=== PATIENT | female | born 1955 | race Caucasian/White ===

== ENCOUNTER 2020-08-17 21:21 | Inpatient (IN) | payer OTHER ==
[~2020-08-17] VITALS: Ht 160 cm; Wt 93.5 kg
[2020-08-17] MEDS ORDERED: SODIUM CHLORIDE FLUSH 10ML SYR IVF ONE (22:00)
--- NOTE | 2020-08-17 22:13 | NUR ---
INDWELLING GARRETT INSERTED WITH STERILE PROCEDURE. CLOUDY, BLOOD TINGED URINE DRAINING. PT STATES HER BLADDER FEELS SO MUCH BETTER. URINE COLLECTED AND TAKEN TO LAB.
[2020-08-17 22:21] LABS: MICROSCOPIC INDICATED
--- NOTE | 2020-08-17 22:30 | NUR ---
PIV PLACED, LABS DRAWN AND COLLECTED BY PERMASTONE INSTALLER. PT CONNECTED TO ALL MONITORING. CALL LIGHT IN REACH. SPOUSE AT BEDSIDE.
--- NOTE | 2020-08-17 22:36 | NUR ---
PT C/O INCREASED WORK OF BREATHING WHILE AMBULATING X1 MONTH. LLE SWELLING X1 MONTH. Addendum: 08/17/20 at 2241 by [email or web address] PT OXYGEN LEVEL 87% RA, EVEN AFTER REPOSITIONING. PT PLACED ON OXYGEN 2L VIA NC. ERMD NOTIFIED.
[2020-08-17 22:37] LABS: BASOPHILS % (AUTO) 1 % (0-1); EOSINOPHILS % (AUTO) 2 % (1-7); LYMPHOCYTES % (AUTO) 12 % (22-44); MEAN CORPUSCULAR HEMOGLOBIN 17.9 pg (27.0-34.8); MEAN PLATELET VOLUME 6.5 fL (7.4-10.4); MONOCYTES % (AUTO) 8 % (2-9); NEUTROPHILS % (AUTO) 78 % (42-75); PLATELET COUNT 458 x10^3/uL (130-400); RED BLOOD COUNT 4.01 x10^6/uL (3.82-5.3)
[2020-08-17 22:49] LABS: ALANINE AMINOTRANSFERASE 15 U/L (12-78); ALBUMIN 2.9 g/dL (3.4-5.0); ANION GAP 5 mmol/L (5-15); CALCIUM 8.5 mg/dL (8.5-10.1); CHLORIDE 106 mmol/L (98-107); CREATININE 1.46 mg/dL (0.55-1.02)
[2020-08-17 22:53] LABS: ALKALINE PHOSPHATASE 100 U/L (45-117); BILIRUBIN,TOTAL 0.2 mg/dL (0.2-1.0)
[2020-08-17 22:57] LABS: TROPONIN I 0.197 ng/mL (0.000-0.045)
[2020-08-17] MEDS ORDERED: NITROGLYCERIN OINT 2%, 1GM TP ONE ×2 (23:00→23:11)
[2020-08-17] MEDS ORDERED: FUROSEMIDE 40 MG/4 ML IVPush ONE (23:00)
[2020-08-17] MEDS ORDERED: CEFTRIAXONE 1,000 MG in DEXTROSE 5% 50 ML IVPB ONE (23:00)
[2020-08-17] MEDS ORDERED: ASPIRIN 81 MG TABLET CHEW PO ONE (23:00)
--- NOTE | 2020-08-17 23:06 | NUR ---
REPORT FROM LANDRY HERRON MD AT BEDSIDE
[2020-08-17] MEDS ORDERED: FUROSEMIDE 40 MG/4 ML ONE (23:10)
[2020-08-17] MEDS ORDERED: ASPIRIN 81 MG TABLET CHEW ONE (23:11)
--- NOTE | 2020-08-17 23:25 | NUR ---
PT MEDICATED. VSS. MED REC COMPLETE. CALL LIGHT IN REACH
[2020-08-17] MEDS ORDERED: HYDROcodone/APAP 5/325 TABLET PO ONE (23:30)
[2020-08-17] MEDS ORDERED: HYDROcodone/APAP 5/325 TABLET ONE (23:34)
[2020-08-18] VITALS (7 sets, daily range): BP systolic 158–195; BP diastolic 62–101
[2020-08-18] MEDS ORDERED: BISACODYL 10 MG SUPP PR PRN (00:30)
[2020-08-18] MEDS ORDERED: POLYETHYLENE GLYCOL 17 GM PACKET PO PRN (00:30)
[2020-08-18] MEDS ORDERED: ONDANSETRON ODT 4 MG PO PRN (00:30)
[2020-08-18] MEDS: FERROUS SULFATE 325 MG TABLET PO SCH ×2 (01:13→08:08)
[2020-08-18 04:44] LABS: BASOPHILS % (AUTO) 0 % (0-1); EOSINOPHILS % (AUTO) 2 % (1-7); LYMPHOCYTES % (AUTO) 15 % (22-44); MEAN CORPUSCULAR HEMOGLOBIN 18.2 pg (27.0-34.8); MEAN CORPUSCULAR HGB CONC 30.7 g/dL (32.4-35.8); MEAN PLATELET VOLUME 6.4 fL (7.4-10.4); MONOCYTES % (AUTO) 9 % (2-9); NEUTROPHILS % (AUTO) 74 % (42-75); PLATELET COUNT 475 x10^3/uL (130-400); RED BLOOD COUNT 3.98 x10^6/uL (3.82-5.3); RED CELL DISTRIBUTION WIDTH 18.6 % (9.6-15.2)
[2020-08-18 04:55] LABS: ANION GAP 6 mmol/L (5-15); CALCIUM 8.8 mg/dL (8.5-10.1); CHLORIDE 105 mmol/L (98-107)
[2020-08-18 05:01] LABS: CREATININE 1.31 mg/dL (0.55-1.02); TROPONIN I 0.192 ng/mL (0.000-0.045)
[2020-08-18] MEDS: SODIUM CHLORIDE FLUSH 10ML SYR IVF SCH ×2 (08:08→22:12)
[2020-08-18] MEDS: FUROSEMIDE 40 MG/4 ML IV SCH ×2 (08:08→17:33)
[2020-08-18] MEDS: SENNA/DOCUSATE TABLET PO SCH (08:09)
[2020-08-18] MEDS ORDERED: IRON SUCROSE COMPLEX 100MG/5ML IV SCH (09:00)
[2020-08-18] MEDS: IRON SUCROSE COMPLEX 100MG/5ML IV SCH (09:51)
[2020-08-18] MEDS: ACETAMINOPHEN 325 MG TABLET PO PRN ×2 (09:51→22:12)
[2020-08-18 10:38] LABS: TROPONIN I 0.165 ng/mL (0.000-0.045)
[2020-08-18] MEDS ORDERED: ENALAPRILAT 1.25 MG/ML, 2ML IV ONE (22:00)
[2020-08-18] MEDS: CEFTRIAXONE 1,000 MG in DEXTROSE 5% 50 ML IVPB SCH (23:07)
[2020-08-19 01:18] VITALS: BP 173/92
[2020-08-19] MEDS: ENALAPRILAT 1.25 MG/ML, 2ML IVPush PRN (01:49)
[2020-08-19] MEDS ORDERED: HYDROcodone/APAP 5/325 TABLET PO ONE (02:30)
[2020-08-19 06:01] LABS: BASOPHILS % (AUTO) 0 % (0-1); EOSINOPHILS % (AUTO) 0 % (1-7); LYMPHOCYTES % (AUTO) 6 % (22-44); MEAN CORPUSCULAR HEMOGLOBIN 17.7 pg (27.0-34.8); MEAN PLATELET VOLUME 6.9 fL (7.4-10.4); MONOCYTES % (AUTO) 6 % (2-9); NEUTROPHILS % (AUTO) 87 % (42-75); PLATELET COUNT 525 x10^3/uL (130-400); RED BLOOD COUNT 4.39 x10^6/uL (3.82-5.3); RED CELL DISTRIBUTION WIDTH 18.9 % (9.6-15.2)
[2020-08-19 06:04] LABS: CHLORIDE 102 mmol/L (98-107)
[2020-08-19 06:14] LABS: ANION GAP 9 mmol/L (5-15); CALCIUM 9.1 mg/dL (8.5-10.1); CREATININE 1.45 mg/dL (0.55-1.02); TROPONIN I 0.154 ng/mL (0.000-0.045)
[2020-08-19 06:16] LABS: MEAN CORPUSCULAR HGB CONC 29.5 g/dL (32.4-35.8)
[2020-08-19 06:30] VITALS: BP 148/83
[2020-08-19] MEDS: IRON SUCROSE COMPLEX 100MG/5ML IV SCH (08:53)
[2020-08-19] MEDS: SODIUM CHLORIDE FLUSH 10ML SYR IVF SCH ×2 (08:54→20:35)
[2020-08-19] MEDS: FUROSEMIDE 40 MG/4 ML IV SCH (08:54)
[2020-08-19] MEDS: SENNA/DOCUSATE TABLET PO SCH (08:54)
[2020-08-19] MEDS ORDERED: HYDROcodone/APAP 5/325 TABLET ONE (09:13)
[2020-08-19] MEDS: HYDROcodone/APAP 5/325 TABLET PO PRN ×3 (09:16→17:29)
[2020-08-19 12:28] VITALS: BP 157/84
[2020-08-19] MEDS: SODIUM CHLORIDE 0.9% 1,000 ML IV SCH (17:29)
[2020-08-19 20:40] VITALS: BP 142/78
[2020-08-19] MEDS: CEFTRIAXONE 1,000 MG in DEXTROSE 5% 50 ML IVPB SCH (23:10)
[2020-08-20 00:51] VITALS: BP 168/81
[2020-08-20] MEDS: SODIUM CHLORIDE 0.9% 1,000 ML IV SCH (03:56)
[2020-08-20 05:38] LABS: BASOPHILS % (AUTO) 0 % (0-1); EOSINOPHILS % (AUTO) 0 % (1-7); LYMPHOCYTES % (AUTO) 11 % (22-44); MEAN CORPUSCULAR HEMOGLOBIN 17.9 pg (27.0-34.8); MEAN CORPUSCULAR HGB CONC 30.2 g/dL (32.4-35.8); MEAN PLATELET VOLUME 8.4 fL (7.4-10.4); MONOCYTES % (AUTO) 10 % (2-9); NEUTROPHILS % (AUTO) 78 % (42-75); PLATELET COUNT 445 x10^3/uL (130-400); RED BLOOD COUNT 4.19 x10^6/uL (3.82-5.3); RED CELL DISTRIBUTION WIDTH 19.1 % (9.6-15.2)
[2020-08-20 05:50] LABS: ANION GAP 5 mmol/L (5-15); CALCIUM 9.6 mg/dL (8.5-10.1); CHLORIDE 102 mmol/L (98-107)
[2020-08-20 05:54] LABS: TROPONIN I 0.088 ng/mL (0.000-0.045)
[2020-08-20 06:07] LABS: ANISOCYTOSIS 2+; MICROCYTOSIS 2+
[2020-08-20 06:08] LABS: POLYCHROMASIA 1+
[2020-08-20 06:09] LABS: <PLATELET ESTIMATE> INCREASED; <PLT MORPHOLOGY> NORMAL PLT MORPH; HYPOCHROMIA 2+; OVALOCYTES 1+
[2020-08-20 07:32] VITALS: BP 149/76
[2020-08-20] MEDS: ACETAMINOPHEN 325 MG TABLET PO PRN (07:37)
[2020-08-20] MEDS: SODIUM CHLORIDE FLUSH 10ML SYR IVF SCH ×2 (10:01→20:19)
[2020-08-20] MEDS ORDERED: OMNIPAQUE 350 MG/ML, 100ML BOTTLE ONE (10:06)
[2020-08-20] MEDS: SENNA/DOCUSATE TABLET PO SCH (12:00)
[2020-08-20] MEDS: IRON SUCROSE COMPLEX 100MG/5ML IV SCH (12:13)
[2020-08-20] MEDS ORDERED: CHLORHEXIDINE 15 ML UDC ONE (12:26)
[2020-08-20] MEDS ORDERED: CHLORHEXIDINE 15 ML UDC PO ONE (12:30)
[2020-08-20] MEDS ORDERED: HYDROmorphone 1 MG/ML, 1ML INJ IVPush PRN (13:00)
[2020-08-20] MEDS ORDERED: PROMETHAZINE 25 MG/ML, 1ML IVPush PRN (13:00)
[2020-08-20] MEDS ORDERED: MEPERIDINE/PF 25MG/0.5ML IVPush PRN (13:00)
[2020-08-20] MEDS ORDERED: HYDROcodone/APAP 7.5-325MG/15ML UDC PO PRN (13:00)
[2020-08-20] MEDS ORDERED: FENTANYL PF 100 MCG/2ML IV PRN (13:00)
[2020-08-20] MEDS ORDERED: ONDANSETRON 2MG/ML, 2ML IVPush PRN (13:00)
[2020-08-20] MEDS ORDERED: OXYcodone 5 MG/5 ML ORAL.SOL UDC PO PRN (13:00)
[2020-08-20] MEDS ORDERED: MIDAZOLAM 1 MG/ML, 2ML ONE (13:03)
[2020-08-20] MEDS ORDERED: FENTANYL PF 100 MCG/2ML ONE (13:04)
[2020-08-20] MEDS ORDERED: OMNIPAQUE 350 MG/ML, 50 ML BOTTLE ONE (13:24)
[2020-08-20 13:29] LABS: OCCULT BLOOD NEGATIVE (NEGATIVE)
[2020-08-20] MEDS ORDERED: DEXAMETHASONE 4 MG/ML, 1ML ONE (14:12)
[2020-08-20] MEDS ORDERED: CEFAZOLIN 1,000 MG ONE (14:12)
[2020-08-20] MEDS ORDERED: GLYCOPYRROLATE 0.2MG/1ML, 5ML ONE (14:12)
[2020-08-20] MEDS ORDERED: ONDANSETRON 2MG/ML, 2ML ONE (14:12)
[2020-08-20] MEDS ORDERED: SUCCINYLCHOLINE 20 MG/ML, 10ML ONE (14:12)
[2020-08-20] MEDS ORDERED: PROPOFOL 10 MG/ML, 20ML ONE (14:12)
[2020-08-20] MEDS ORDERED: NEOSTIGMINE 1 MG/ML, 10ML ONE (14:12)
[2020-08-20] MEDS ORDERED: ROCURONIUM 10MG/ML,5ML ONE (14:12)
[2020-08-20] MEDS ORDERED: LABETALOL 5MG/ML, 20ML ONE (15:18)
[2020-08-20] MEDS ORDERED: LABETALOL 5MG/ML, 20ML IV PRN (15:30)
[2020-08-20] MEDS ORDERED: hydrALAzine 20 MG/ML, 1ML IV PRN (15:30)
[2020-08-20 15:55] VITALS: BP 153/81
[2020-08-20 18:51] LABS: INTERNATIONAL NORMALIZED RATIO 1.07 (0.93-1.1); PROTHROMBIN TIME 11.4 Seconds (9.6-11.5)
[2020-08-20] MEDS ORDERED: OMNIPAQUE 350 MG/ML, 75ML BOTTLE ONE (19:33)
[2020-08-20 20:13] VITALS: BP 130/70
[2020-08-20] MEDS: CEFTRIAXONE 1,000 MG in DEXTROSE 5% 50 ML IVPB SCH (23:13)
[2020-08-21 01:18] VITALS: BP 150/75
[2020-08-21 04:52] LABS: BASOPHILS % (AUTO) 1 % (0-1); EOSINOPHILS % (AUTO) 0 % (1-7); LYMPHOCYTES % (AUTO) 6 % (22-44); MEAN CORPUSCULAR HEMOGLOBIN 17.8 pg (27.0-34.8); MEAN PLATELET VOLUME 6.7 fL (7.4-10.4); MONOCYTES % (AUTO) 5 % (2-9); NEUTROPHILS % (AUTO) 88 % (42-75); PLATELET COUNT 453 x10^3/uL (130-400); RED BLOOD COUNT 4.02 x10^6/uL (3.82-5.3); RED CELL DISTRIBUTION WIDTH 18.9 % (9.6-15.2)
[2020-08-21 04:56] LABS: MEAN CORPUSCULAR HGB CONC 29.4 g/dL (32.4-35.8)
[2020-08-21 05:07] LABS: CHLORIDE 102 mmol/L (98-107)
[2020-08-21 05:15] LABS: ANION GAP 4 mmol/L (5-15); CALCIUM 9.3 mg/dL (8.5-10.1); CREATININE 1.45 mg/dL (0.55-1.02)
[2020-08-21 05:58] LABS: INTERNATIONAL NORMALIZED RATIO 1.02 (0.93-1.1); PROTHROMBIN TIME 10.9 Seconds (9.6-11.5)
[2020-08-21 07:15] VITALS: BP 147/77
[2020-08-21] MEDS: SENNA/DOCUSATE TABLET PO SCH (09:58)
[2020-08-21] MEDS: IRON SUCROSE COMPLEX 100MG/5ML IV SCH (09:58)
[2020-08-21] MEDS: FERROUS SULFATE 325 MG TABLET PO SCH ×3 (09:58→17:14)
[2020-08-21] MEDS: SODIUM CHLORIDE FLUSH 10ML SYR IVF SCH ×2 (09:59→20:18)
[2020-08-21] MEDS ORDERED: LIDOCAINE-MPF 1%, 5ML ONE (10:18)
[2020-08-21] MEDS ORDERED: MIDAZOLAM 1 MG/ML, 5ML ONE (10:22)
[2020-08-21] MEDS ORDERED: FENTANYL PF 100 MCG/2ML ONE (10:22)
[2020-08-21] MEDS ORDERED: FLUMAZENIL 0.1 MG/1 ML, 5ML ONE (10:22)
[2020-08-21] MEDS ORDERED: NALOXONE 1 MG/ML, 2ML ONE (10:22)
[2020-08-21 13:48] VITALS: BP 155/82
[2020-08-21] MEDS ORDERED: GADOTERATE 10 MMOL/20ML SYR ONE (15:40)
[2020-08-21] MEDS: HYDROcodone/APAP 5/325 TABLET PO PRN (19:34)
[2020-08-21 20:21] VITALS: BP 146/70
[2020-08-21] MEDS: CEFTRIAXONE 1,000 MG in DEXTROSE 5% 50 ML IVPB SCH (23:12)
[2020-08-22 01:59] VITALS: BP 170/90
[2020-08-22] MEDS: ACETAMINOPHEN 325 MG TABLET PO PRN (02:24)
[2020-08-22] MEDS: ENALAPRILAT 1.25 MG/ML, 2ML IVPush PRN ×2 (02:24→16:29)
[2020-08-22 05:29] LABS: BASOPHILS % (AUTO) 1 % (0-1); EOSINOPHILS % (AUTO) 0 % (1-7); LYMPHOCYTES % (AUTO) 8 % (22-44); MEAN CORPUSCULAR HEMOGLOBIN 18.6 pg (27.0-34.8); MEAN CORPUSCULAR HGB CONC 30.2 g/dL (32.4-35.8); MEAN PLATELET VOLUME 6.9 fL (7.4-10.4); MONOCYTES % (AUTO) 9 % (2-9); NEUTROPHILS % (AUTO) 82 % (42-75); PLATELET COUNT 477 x10^3/uL (130-400); RED CELL DISTRIBUTION WIDTH 18.8 % (9.6-15.2)
[2020-08-22 05:40] LABS: CALCIUM 9.3 mg/dL (8.5-10.1); CHLORIDE 102 mmol/L (98-107)
[2020-08-22 05:46] LABS: ALANINE AMINOTRANSFERASE 12 U/L (12-78); ALBUMIN 2.5 g/dL (3.4-5.0); ALKALINE PHOSPHATASE 76 U/L (45-117); ANION GAP 5 mmol/L (5-15); BILIRUBIN,TOTAL 0.2 mg/dL (0.2-1.0); CREATININE 1.39 mg/dL (0.55-1.02); TOTAL PROTEIN 6.4 g/dL (6.4-8.2)
[2020-08-22 07:05] VITALS: BP 162/88
[2020-08-22] MEDS: SENNA/DOCUSATE TABLET PO SCH (08:40)
[2020-08-22] MEDS: IRON SUCROSE COMPLEX 100MG/5ML IV SCH (08:40)
[2020-08-22] MEDS: FERROUS SULFATE 325 MG TABLET PO SCH ×3 (08:40→16:29)
[2020-08-22] MEDS: SODIUM CHLORIDE FLUSH 10ML SYR IVF SCH ×2 (08:41→21:02)
[2020-08-22] MEDS ORDERED: ENALAPRILAT 1.25 MG/ML, 1ML ONE ×2 (10:18→10:19)
[2020-08-22 10:31] LABS: OCCULT BLOOD NEGATIVE (NEGATIVE)
[2020-08-22] MEDS ORDERED: HEPARIN 25,000 UNITS/250ML PMX 250 ML IV PRN (13:00)
[2020-08-22] MEDS ORDERED: HEPARIN 5,000 UNITS/ML, 1ML IV ONE (13:00)
[2020-08-22] MEDS: HYDROcodone/APAP 5/325 TABLET PO PRN ×2 (13:06→17:35)
[2020-08-22 13:08] VITALS: BP 173/90
[2020-08-22 16:20] VITALS: BP 183/93
[2020-08-22 17:36] VITALS: BP 163/77
[2020-08-22 19:49] VITALS: BP 166/80
[2020-08-22] MEDS: HEPARIN 5,000 UNITS/ML, 1ML IV PRN (21:02)
[2020-08-23 00:35] VITALS: BP 165/79
[2020-08-23] MEDS ORDERED: ENALAPRILAT 1.25 MG/ML, 1ML ONE ×2 (00:41→09:33)
[2020-08-23] MEDS: HYDROcodone/APAP 5/325 TABLET PO PRN ×3 (00:44→19:12)
[2020-08-23] MEDS: ENALAPRILAT 1.25 MG/ML, 2ML IVPush PRN ×2 (00:47→09:36)
[2020-08-23 00:54] LABS: OCCULT BLOOD NEGATIVE (NEGATIVE)
[2020-08-23 05:27] LABS: ANION GAP 2 mmol/L (5-15); BASOPHILS % (AUTO) 1 % (0-1); CALCIUM 8.9 mg/dL (8.5-10.1); CHLORIDE 104 mmol/L (98-107); CREATININE 1.17 mg/dL (0.55-1.02); EOSINOPHILS % (AUTO) 1 % (1-7); LYMPHOCYTES % (AUTO) 13 % (22-44); MEAN CORPUSCULAR HEMOGLOBIN 18.8 pg (27.0-34.8); MEAN PLATELET VOLUME 6.7 fL (7.4-10.4); MONOCYTES % (AUTO) 10 % (2-9); NEUTROPHILS % (AUTO) 76 % (42-75); PLATELET COUNT 443 x10^3/uL (130-400); RED BLOOD COUNT 3.99 x10^6/uL (3.82-5.3); RED CELL DISTRIBUTION WIDTH 19.4 % (9.6-15.2)
[2020-08-23 05:32] LABS: MEAN CORPUSCULAR HGB CONC 29.9 g/dL (32.4-35.8)
[2020-08-23] MEDS: HEPARIN 5,000 UNITS/ML, 1ML IV PRN (06:26)
[2020-08-23 06:59] VITALS: BP 163/77
[2020-08-23] MEDS: IRON SUCROSE COMPLEX 100MG/5ML IV SCH (09:37)
[2020-08-23] MEDS: SODIUM CHLORIDE FLUSH 10ML SYR IVF SCH ×2 (09:38→21:38)
[2020-08-23] MEDS: SENNA/DOCUSATE TABLET PO SCH (09:38)
[2020-08-23] MEDS: FERROUS SULFATE 325 MG TABLET PO SCH ×3 (09:38→17:30)
[2020-08-23] MEDS: APIXABAN 5 MG TABLET PO SCH ×2 (10:58→21:38)
[2020-08-23 12:41] VITALS: BP 155/72
[2020-08-23 19:04] VITALS: BP 123/64
[2020-08-24 01:15] VITALS: BP 145/84
[2020-08-24] MEDS: HYDROcodone/APAP 5/325 TABLET PO PRN ×2 (01:22→16:55)
[2020-08-24 05:15] LABS: BASOPHILS % (AUTO) 1 % (0-1); EOSINOPHILS % (AUTO) 2 % (1-7); LYMPHOCYTES % (AUTO) 12 % (22-44); MEAN CORPUSCULAR HEMOGLOBIN 19.3 pg (27.0-34.8); MEAN CORPUSCULAR HGB CONC 30.5 g/dL (32.4-35.8); MEAN PLATELET VOLUME 6.8 fL (7.4-10.4); MONOCYTES % (AUTO) 9 % (2-9); NEUTROPHILS % (AUTO) 77 % (42-75); PLATELET COUNT 441 x10^3/uL (130-400); RED BLOOD COUNT 3.93 x10^6/uL (3.82-5.3); RED CELL DISTRIBUTION WIDTH 19.2 % (9.6-15.2)
[2020-08-24 05:18] LABS: ANION GAP 2 mmol/L (5-15); CALCIUM 9.3 mg/dL (8.5-10.1); CHLORIDE 106 mmol/L (98-107)
[2020-08-24 05:19] LABS: CREATININE 1.13 mg/dL (0.55-1.02)
[2020-08-24 06:27] VITALS: BP 152/84
[2020-08-24] MEDS: SENNA/DOCUSATE TABLET PO SCH (08:02)
[2020-08-24] MEDS: APIXABAN 5 MG TABLET PO SCH ×2 (08:02→20:58)
[2020-08-24] MEDS: FERROUS SULFATE 325 MG TABLET PO SCH ×3 (08:02→16:55)
[2020-08-24] MEDS: IRON SUCROSE COMPLEX 100MG/5ML IV SCH (08:02)
[2020-08-24] MEDS: SODIUM CHLORIDE FLUSH 10ML SYR IVF SCH ×2 (09:00→20:59)
[2020-08-24] MEDS: ACETAMINOPHEN 325 MG TABLET PO PRN (10:01)
[2020-08-24 13:12] VITALS: BP 159/70
[2020-08-24] MEDS ORDERED: APIX5TAB PO (14:51)
[2020-08-24] MEDS ORDERED: HYDR-2214 PO (14:51)
[2020-08-24] MEDS ORDERED: SENN-211 PO (14:51)
[2020-08-24 18:56] VITALS: BP 152/73
[2020-08-25 00:32] VITALS: BP 145/69
[2020-08-25 06:34] VITALS: BP 162/79
[2020-08-25] MEDS: IRON SUCROSE COMPLEX 100MG/5ML IV SCH (08:38)
[2020-08-25] MEDS: APIXABAN 5 MG TABLET PO SCH (08:38)
[2020-08-25] MEDS: SODIUM CHLORIDE FLUSH 10ML SYR IVF SCH (08:38)
[2020-08-25] MEDS: FERROUS SULFATE 325 MG TABLET PO SCH ×2 (08:38→13:34)
[2020-08-25] MEDS: SENNA/DOCUSATE TABLET PO SCH (08:39)
[2020-08-25] MEDS: HYDROcodone/APAP 5/325 TABLET PO PRN ×2 (08:48→13:34)
[2020-08-25 09:45] LABS: BASOPHILS % (AUTO) 1 % (0-1); EOSINOPHILS % (AUTO) 1 % (1-7); LYMPHOCYTES % (AUTO) 8 % (22-44); MEAN CORPUSCULAR HEMOGLOBIN 19.1 pg (27.0-34.8); MEAN CORPUSCULAR HGB CONC 30.1 g/dL (32.4-35.8); MEAN PLATELET VOLUME 6.7 fL (7.4-10.4); MONOCYTES % (AUTO) 7 % (2-9); NEUTROPHILS % (AUTO) 84 % (42-75); PLATELET COUNT 470 x10^3/uL (130-400); RED BLOOD COUNT 4.17 x10^6/uL (3.82-5.3); RED CELL DISTRIBUTION WIDTH 19.5 % (9.6-15.2)
[2020-08-25 10:02] LABS: ANION GAP 4 mmol/L (5-15); CALCIUM 9.1 mg/dL (8.5-10.1); CHLORIDE 103 mmol/L (98-107)
[2020-08-25 10:11] LABS: <PLATELET ESTIMATE> INCREASED; <PLT MORPHOLOGY> NORMAL PLT MORPH; ANISOCYTOSIS 1+; HYPOCHROMIA 1+; MICROCYTOSIS 2+
[2020-08-25 10:12] LABS: OVALOCYTES 1+; POLYCHROMASIA 1+
[2020-08-25] MEDS ORDERED: AMLO10TA4 PO (10:56)
[2020-08-30] MEDS ORDERED: APIXABAN 5 MG TABLET PO SCH (09:00)
== END 2020-08-25 14:23 | disposition home or self-care (01) | DRG 656 ==
LOC: ED 22:00 → EDIP 08-18 00:24 → 5SO 08-18 00:50 → 4NW 08-23 12:35
PROVIDERS: ADMIT Family Medicine; ATTEND Hospitalist
PROC: 0T9B70Z Drainage of Bladder with Drainage Device, Via Natural or Artificial Opening (ICD-10-PCS; 2020-08-17)
PROC: 0TBB8ZZ Excision of Bladder, Via Natural or Artificial Opening Endoscopic (ICD-10-PCS; 2020-08-20)
PROC: 0T778DZ Dilation of Left Ureter with Intraluminal Device, Via Natural or Artificial Opening Endoscopic (ICD-10-PCS; principal; 2020-08-20 12:00)
PROC: 0T9330Z Drainage of Right Kidney Pelvis with Drainage Device, Percutaneous Approach (ICD-10-PCS; 2020-08-21)
PROC: BT111ZZ Fluoroscopy of Right Kidney using Low Osmolar Contrast (ICD-10-PCS; 2020-08-21)
PROC: 0S9D3ZZ Drainage of Left Knee Joint, Percutaneous Approach (ICD-10-PCS; 2020-08-21)
DX: C67.9 Malignant neoplasm of bladder, unspecified (principal); I21.A1 Myocardial infarction type 2; I26.99 Other pulmonary embolism without acute cor pulmonale; J96.01 Acute respiratory failure with hypoxia; I50.21 Acute systolic (congestive) heart failure; D62 Acute posthemorrhagic anemia; N13.6 Pyonephrosis; N17.9 Acute kidney failure, unspecified; Z20.822 Contact with and (suspected) exposure to COVID-19; D25.1 Intramural leiomyoma of uterus; F17.210 Nicotine dependence, cigarettes, uncomplicated; G89.29 Other chronic pain; M25.462 Effusion, left knee; I11.0 Hypertensive heart disease with heart failure; M17.12 Unilateral primary osteoarthritis, left knee; Z79.01 Long term (current) use of anticoagulants; Z82.49 Family history of ischemic heart disease and other diseases of the circulatory system; Z83.3 Family history of diabetes mellitus; Z85.51 Personal history of malignant neoplasm of bladder; Z86.711 Personal history of pulmonary embolism; Z90.49 Acquired absence of other specified parts of digestive tract; Z79.899 Other long term (current) drug therapy
CPT/HCPCS: 20606; 36415; 50432; 70553; 71045; 71275; 72197; 74018; 74177; 76000; 76856; 80048; 80053; 81001; 82272; 82728; 83540; 83550; 83735; 83880; 84100; 84484; 85025; 85520; 85610; 85730; 85810; 87070; 87075; 87077; 87086; 87205; 87635; 88112; 88305; 89050; 89060; 93005; 93306; 93356; 93970; 96365; 99156; 99157; C1894; G0378; J0690; J0696; J1100; J1644; J1756; J1940; J2250; J2405; J2704; J2710; J3010; Q9967; A9575; C1729; C1769; C2617; J0330; J2310; J7030; J7512

== ENCOUNTER 2020-09-07 21:48 | Inpatient (IN) | payer OTHER ==
[~2020-09-07] VITALS: Ht 161.3 cm; Wt 88.6 kg
[~2020-09-07 21:48] MED LIST: AMLO10TA4 PO; APIX5TAB PO; HYDR-2214 PO; SENN-211 PO
--- NOTE | 2020-09-07 21:57 | NUR ---
PT STATED THAT SHE WAS IN THE HOSPITAL ONE WEEK AGO, HAD NEPHROSTOMY PLACED RIGHT KIDNEY. DISCHARGE WITH FOLLOW UP PLAN OF ONCOLOGY FOR BONE DENISITY SCAN, AND CHEMO/RADIATION.
--- NOTE | 2020-09-07 22:28 | NUR ---
NEPH TUBE URINE SAMPLE WALKED TO LAB
[2020-09-07] MEDS ORDERED: SODIUM CHLORIDE 0.9% 1,000ML IVBOLUS ONE (22:30)
[2020-09-07 22:35] LABS: BASOPHILS % (AUTO) 1 % (0-1); EOSINOPHILS % (AUTO) 0 % (1-7); LYMPHOCYTES % (AUTO) 7 % (22-44); MEAN CORPUSCULAR HEMOGLOBIN 20.7 pg (27.0-34.8); MEAN CORPUSCULAR HGB CONC 30.8 g/dL (32.4-35.8); MEAN PLATELET VOLUME 6.4 fL (7.4-10.4); MONOCYTES % (AUTO) 6 % (2-9); NEUTROPHILS % (AUTO) 86 % (42-75); PLATELET COUNT 475 x10^3/uL (130-400); RED BLOOD COUNT 4.59 x10^6/uL (3.82-5.3); RED CELL DISTRIBUTION WIDTH 33.9 % (9.6-15.2)
[2020-09-07 22:37] LABS: MICROSCOPIC INDICATED
[2020-09-07 22:47] LABS: ALBUMIN 2.6 g/dL (3.4-5.0); ANION GAP 7 mmol/L (5-15); CALCIUM 9.2 mg/dL (8.5-10.1); CHLORIDE 102 mmol/L (98-107)
[2020-09-07 22:53] LABS: ALANINE AMINOTRANSFERASE 23 U/L (12-78); ALKALINE PHOSPHATASE 118 U/L (45-117); BILIRUBIN,TOTAL 0.3 mg/dL (0.2-1.0); CREATININE 1.48 mg/dL (0.55-1.02); TOTAL PROTEIN 7.2 g/dL (6.4-8.2); TROPONIN I 0.069 ng/mL (0.000-0.045)
[2020-09-07 23:18] LABS: ANISOCYTOSIS 2+; HYPOCHROMIA 1+; MICROCYTOSIS 2+; OVALOCYTES 1+; POLYCHROMASIA 1+
[2020-09-07 23:20] LABS: <PLATELET ESTIMATE> INCREASED; <PLT MORPHOLOGY> NORMAL PLT MORPH
[2020-09-07 23:53] LABS: MICROSCOPIC INDICATED
[2020-09-08] MEDS ORDERED: CEFTRIAXONE 1,000 MG in DEXTROSE 5% 50 ML IVPB ONE ×2 (00:30→02:00)
[2020-09-08 00:55] VITALS: BP 119/68
[2020-09-08] MEDS ORDERED: LACTATED RINGERS 1,000 ML IV SCH (01:00)
[2020-09-08] MEDS ORDERED: ONDANSETRON 2MG/ML, 2ML IVPush PRN (01:00)
[2020-09-08] MEDS ORDERED: PLEASE ENTER HEIGHT AND WEIGHT MC SCH (01:00)
[2020-09-08] MEDS ORDERED: MELATONIN 5 MG TABLET PO PRN (01:00)
[2020-09-08] MEDS ORDERED: OXYcodone IR 5MG TABLET PO PRN (01:00)
[2020-09-08] MEDS ORDERED: KETOROLAC 30 MG/1 ML IV PRN (01:00)
[2020-09-08] MEDS ORDERED: POLYETHYLENE GLYCOL 17 GM PACKET PO PRN (01:00)
[2020-09-08] MEDS ORDERED: ENOXAPARIN 40 MG/0.4 ML SQ SCH (01:00)
[2020-09-08] MEDS: ACETAMINOPHEN 500 MG TABLET PO SCH ×6 (01:12→20:40)
[2020-09-08 02:14] LABS: TROPONIN I 0.066 ng/mL (0.000-0.045)
[2020-09-08 06:27] VITALS: BP 103/57
[2020-09-08 07:33] LABS: BASOPHILS % (AUTO) 1 % (0-1); EOSINOPHILS % (AUTO) 1 % (1-7); LYMPHOCYTES % (AUTO) 7 % (22-44); MEAN CORPUSCULAR HEMOGLOBIN 20.8 pg (27.0-34.8); MEAN CORPUSCULAR HGB CONC 30.8 g/dL (32.4-35.8); MEAN PLATELET VOLUME 6.4 fL (7.4-10.4); MONOCYTES % (AUTO) 10 % (2-9); NEUTROPHILS % (AUTO) 82 % (42-75); PLATELET COUNT 418 x10^3/uL (130-400); RED BLOOD COUNT 4.26 x10^6/uL (3.82-5.3); RED CELL DISTRIBUTION WIDTH 32.7 % (9.6-15.2)
[2020-09-08 07:43] LABS: ANION GAP 3 mmol/L (5-15); CALCIUM 8.8 mg/dL (8.5-10.1); CHLORIDE 106 mmol/L (98-107); CREATININE 1.25 mg/dL (0.55-1.02)
[2020-09-08 07:48] LABS: TROPONIN I 0.075 ng/mL (0.000-0.045)
[2020-09-08] MEDS: SODIUM CHLORIDE 0.9% 1,000 ML IV SCH (08:56)
[2020-09-08] MEDS: APIXABAN 5 MG TABLET PO SCH ×2 (08:56→20:41)
[2020-09-08] MEDS ORDERED: AMLODIPINE 10 MG TAB PO SCH (09:00)
[2020-09-08] MEDS: INSULIN LISPRO 100 UNITS/ML, PEN SQ-INSULIN SCH ×3 (11:00→20:45)
[2020-09-08 13:22] VITALS: BP 136/73
[2020-09-08 17:38] VITALS: BP 128/75
[2020-09-08] MEDS: CARVEDILOL 6.25 MG TABLET PO SCH (17:40)
[2020-09-08 18:45] VITALS: BP 115/57
[2020-09-08] MEDS: ATORVASTATIN 40 MG TABLET PO SCH (20:40)
[2020-09-09 00:59] VITALS: BP 106/66
[2020-09-09] MEDS: SODIUM CHLORIDE 0.9% 1,000 ML IV SCH ×2 (01:06→19:55)
[2020-09-09] MEDS: CEFTRIAXONE 2 GM in DEXTROSE 5% 50 ML IVPB SCH (01:06)
[2020-09-09] MEDS: ACETAMINOPHEN 500 MG TABLET PO SCH ×6 (01:06→22:42)
[2020-09-09 04:58] LABS: BASOPHILS % (AUTO) 1 % (0-1); EOSINOPHILS % (AUTO) 1 % (1-7); LYMPHOCYTES % (AUTO) 9 % (22-44); MEAN CORPUSCULAR HEMOGLOBIN 20.9 pg (27.0-34.8); MEAN CORPUSCULAR HGB CONC 30.3 g/dL (32.4-35.8); MEAN PLATELET VOLUME 6.8 fL (7.4-10.4); MONOCYTES % (AUTO) 11 % (2-9); NEUTROPHILS % (AUTO) 79 % (42-75); PLATELET COUNT 403 x10^3/uL (130-400); RED BLOOD COUNT 4.23 x10^6/uL (3.82-5.3); RED CELL DISTRIBUTION WIDTH 33.9 % (9.6-15.2)
[2020-09-09 05:09] LABS: ANION GAP 3 mmol/L (5-15); CHLORIDE 108 mmol/L (98-107); CREATININE 1.14 mg/dL (0.55-1.02)
[2020-09-09 05:11] LABS: % IRON SATURATION 7 % (20-55); IRON LEVEL 11 mcg/dL (50-170); TOTAL IRON BINDING CAPACITY 167 mcg/dL (250-450)
[2020-09-09] MEDS: CARVEDILOL 6.25 MG TABLET PO SCH ×2 (05:55→17:33)
[2020-09-09 06:57] VITALS: BP 104/63
[2020-09-09] MEDS: INSULIN LISPRO 100 UNITS/ML, PEN SQ-INSULIN SCH (07:00)
[2020-09-09] MEDS: APIXABAN 5 MG TABLET PO SCH ×2 (08:10→19:52)
[2020-09-09 12:10] LABS: OCCULT BLOOD NEGATIVE (NEGATIVE)
[2020-09-09 14:53] VITALS: BP 119/58
[2020-09-09 19:37] VITALS: BP 114/65
[2020-09-09] MEDS: ATORVASTATIN 40 MG TABLET PO SCH (19:52)
[2020-09-10] MEDS: CEFTRIAXONE 2 GM in DEXTROSE 5% 50 ML IVPB SCH (00:51)
[2020-09-10 01:11] VITALS: BP 122/76
[2020-09-10] MEDS: CARVEDILOL 6.25 MG TABLET PO SCH (05:47)
[2020-09-10 07:40] VITALS: BP 123/69
[2020-09-10 08:49] LABS: BASOPHILS % (AUTO) 2 % (0-1); EOSINOPHILS % (AUTO) 2 % (1-7); LYMPHOCYTES % (AUTO) 12 % (22-44); MEAN CORPUSCULAR HEMOGLOBIN 20.7 pg (27.0-34.8); MEAN CORPUSCULAR HGB CONC 30.5 g/dL (32.4-35.8); MEAN PLATELET VOLUME 8.5 fL (7.4-10.4); MONOCYTES % (AUTO) 10 % (2-9); NEUTROPHILS % (AUTO) 76 % (42-75); PLATELET COUNT 394 x10^3/uL (130-400); RED BLOOD COUNT 4.14 x10^6/uL (3.82-5.3); RED CELL DISTRIBUTION WIDTH 33.3 % (9.6-15.2)
[2020-09-10] MEDS: APIXABAN 5 MG TABLET PO SCH (08:53)
[2020-09-10 08:54] LABS: ANION GAP 5 mmol/L (5-15); CHLORIDE 105 mmol/L (98-107); CREATININE 1.04 mg/dL (0.55-1.02)
[2020-09-10] MEDS: SODIUM CHLORIDE 0.9% 1,000 ML IV SCH (14:01)
[2020-09-10] MEDS ORDERED: NITR100C56 PO (14:08)
[2020-09-10] MEDS ORDERED: CARV6.2512 PO (14:08)
[2020-09-10] MEDS ORDERED: ATOR40TA78 PO (14:08)
[2020-09-10] MEDS ORDERED: FERR-51 PO (14:12)
[2020-09-10 17:02] VITALS: BP 124/72
== END 2020-09-10 17:07 | disposition home or self-care (01) | DRG 871 ==
LOC: ED 23:00 → INTOOBSV 09-08 00:33 → EDIP 09-08 00:33 → OBSVTOIN 09-08 00:33 → 4NW 09-08 00:49
PROVIDERS: ADMIT Internal Medicine; ATTEND Internal Medicine
DX: A41.9 Sepsis, unspecified organism (principal); I21.A1 Myocardial infarction type 2; N13.6 Pyonephrosis; E87.1 Hypo-osmolality and hyponatremia; N17.9 Acute kidney failure, unspecified; K59.00 Constipation, unspecified; I50.9 Heart failure, unspecified; M17.12 Unilateral primary osteoarthritis, left knee; G89.29 Other chronic pain; F19.10 Other psychoactive substance abuse, uncomplicated; F17.200 Nicotine dependence, unspecified, uncomplicated; E66.9 Obesity, unspecified; D50.9 Iron deficiency anemia, unspecified; C67.9 Malignant neoplasm of bladder, unspecified; I11.0 Hypertensive heart disease with heart failure; R31.0 Gross hematuria; Z86.711 Personal history of pulmonary embolism; Z79.01 Long term (current) use of anticoagulants; Z85.51 Personal history of malignant neoplasm of bladder; I25.2 Old myocardial infarction; Z79.899 Other long term (current) drug therapy
CPT/HCPCS: 36415; 71045; 76770; 78306; 80048; 80053; 81001; 82272; 82962; 83036; 83540; 83550; 83605; 83690; 83880; 84484; 85025; 87040; 87077; 87086; 87184; 87186; 96374; G0378; J0696; J1885; A9503; J7030; J7120

== ENCOUNTER 2020-09-18 21:47 | Emergency (ER) | payer OTHER ==
[~2020-09-18] VITALS: Ht 160 cm; Wt 82.7 kg
[~2020-09-18 21:47] MED LIST changes: +ATOR40TA78 PO; +CARV6.2512 PO; +FERR-51 PO; +NITR100C56 PO
[2020-09-18] MEDS ORDERED: ACETAMINOPHEN 500 MG TABLET ONE (22:35)
[2020-09-18] MEDS ORDERED: ACETAMINOPHEN 500 MG TABLET PO ONE (23:00)
--- NOTE | 2020-09-18 23:46 | NUR ---
Note ramiro in ED - 09/18/20 at 2347 by TSHUTES PT LEFT AMA. SIGNED FORM FOR REGISTRATION.
[2020-09-19] MEDS ORDERED: LEVOFLOXACIN/PMX 750MG/150ML 150 ML IV ONE (01:00)
[2020-09-19 01:36] LABS: BASOPHILS % (AUTO) 1 % (0-1); EOSINOPHILS % (AUTO) 1 % (1-7); LYMPHOCYTES % (AUTO) 21 % (22-44); MEAN CORPUSCULAR HGB CONC 32.2 g/dL (32.4-35.8); MEAN PLATELET VOLUME 8.2 fL (7.4-10.4); MONOCYTES % (AUTO) 8 % (2-9); NEUTROPHILS % (AUTO) 70 % (42-75); PLATELET COUNT 461 x10^3/uL (130-400); RED BLOOD COUNT 4.28 x10^6/uL (3.82-5.3); RED CELL DISTRIBUTION WIDTH 32.9 % (9.6-15.2)
[2020-09-19 01:43] LABS: MICROSCOPIC INDICATED
[2020-09-19 01:48] LABS: ALANINE AMINOTRANSFERASE 21 U/L (12-78); ALBUMIN 2.8 g/dL (3.4-5.0); ANION GAP 7 mmol/L (5-15); CALCIUM 9.1 mg/dL (8.5-10.1); CHLORIDE 104 mmol/L (98-107); CREATININE 1.36 mg/dL (0.55-1.02)
[2020-09-19 01:50] LABS: ALKALINE PHOSPHATASE 131 U/L (45-117); BILIRUBIN,TOTAL 0.3 mg/dL (0.2-1.0); TOTAL PROTEIN 7.4 g/dL (6.4-8.2)
[2020-09-19 01:53] LABS: MICROSCOPIC INDICATED
[2020-09-19] MEDS ORDERED: MORPHINE SULFATE 4 MG/ML, 1ML IVPush PRN (02:00)
[2020-09-19] MEDS ORDERED: ONDANSETRON 2MG/ML, 2ML IVPush ONE (02:00)
[2020-09-19] MEDS ORDERED: MORPHINE SULFATE 4 MG/ML, 1ML ONE (02:01)
[2020-09-19] MEDS ORDERED: ONDANSETRON 2MG/ML, 2ML ONE (02:01)
[2020-09-19 04:18] VITALS: BP 111/72
--- NOTE | 2020-09-19 04:32 | NUR ---
Patient given discharge instructions and they have confirmed that they understand the instructions. Patient ambulatory with steady gait. NAD, all questions answered appropriately, denies additional needs at this time. No personal belongings left in room after discharge.
== END 2020-09-19 04:47 | disposition home or self-care (01) ==
LOC: ED 22:17
DX: N30.01 Acute cystitis with hematuria (principal); D50.9 Iron deficiency anemia, unspecified; I10 Essential (primary) hypertension; I25.2 Old myocardial infarction; Z85.51 Personal history of malignant neoplasm of bladder
CPT/HCPCS: 36415; 80053; 81001; 83605; 85025; 87040; 87077; 87086; 96365; 96366; 96375; 99285; J1956; J2270; J2405; 87186

== ENCOUNTER 2020-09-29 17:15 | Inpatient (IN) | payer MEDICAID ==
[~2020-09-29] VITALS: Ht 160 cm; Wt 86.8 kg
[2020-09-29 19:47] LABS: BASOPHILS % (AUTO) 1 % (0-1); EOSINOPHILS % (AUTO) 1 % (1-7); LYMPHOCYTES % (AUTO) 17 % (22-44); MEAN CORPUSCULAR HEMOGLOBIN 22.1 pg (27.0-34.8); MEAN PLATELET VOLUME 6.1 fL (7.4-10.4); MONOCYTES % (AUTO) 6 % (2-9); NEUTROPHILS % (AUTO) 76 % (42-75); PLATELET COUNT 523 x10^3/uL (130-400); RED BLOOD COUNT 4.48 x10^6/uL (3.82-5.3); RED CELL DISTRIBUTION WIDTH 33.5 % (9.6-15.2)
--- NOTE | 2020-09-29 19:52 | NUR ---
TANNERY WORKER: PT. TO ROOM FROM LOBBY AT THIS TIME.
[2020-09-29 19:58] LABS: ALANINE AMINOTRANSFERASE 15 U/L (12-78); ANION GAP 6 mmol/L (5-15); CALCIUM 9.7 mg/dL (8.5-10.1); CHLORIDE 104 mmol/L (98-107); CREATININE 1.98 mg/dL (0.55-1.02)
[2020-09-29] MEDS ORDERED: ONDANSETRON 2MG/ML, 2ML IVPush ONE (20:00)
[2020-09-29] MEDS ORDERED: HYDROmorphone 1 MG/ML, 1ML INJ IV ONE ×2 (20:00→23:00)
[2020-09-29] MEDS ORDERED: SODIUM CHLORIDE FLUSH 10ML SYR IVF ONE (20:00)
--- NOTE | 2020-09-29 20:00 | NUR ---
FIRST ENCOUNTER WITH PATIENT. PATIENT PRESENTS WITH BILATERAL FLANK PAIN, DSYURIA, HEMATURIA SINCE THIS MORNING. +NAUSEA. 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
[2020-09-29 20:01] LABS: ALKALINE PHOSPHATASE 88 U/L (45-117); BILIRUBIN,TOTAL 0.3 mg/dL (0.2-1.0); TOTAL PROTEIN 8.1 g/dL (6.4-8.2)
[2020-09-29 20:05] LABS: ANISOCYTOSIS 1+; HYPOCHROMIA 1+; OVALOCYTES 1+
[2020-09-29 20:06] LABS: <PLATELET ESTIMATE> ADEQUATE; <PLT MORPHOLOGY> NORMAL PLT MORPH
[2020-09-29] MEDS ORDERED: ONDANSETRON 2MG/ML, 2ML ONE (20:15)
[2020-09-29] MEDS ORDERED: HYDROmorphone 2 MG/ML, 1ML ONE (20:15)
--- NOTE | 2020-09-29 20:30 | NUR ---
IL NS HUNG AT THIS TIME PER VERBAL ORDER MD KEMP.
[2020-09-29 21:04] LABS: MICROSCOPIC INDICATED
--- NOTE | 2020-09-29 21:15 | NUR ---
PATIENT IN CT.
--- NOTE | 2020-09-29 22:31 | NUR ---
PATIENT AND AT BEDSIDE PROVIDED WITH ICE WATER. DENIES ANY OTHER NEEDS AT THIS TIME. PATIENT REMAINS PAIN FREE. WILL CONTINUE TO MONITOR.
[2020-09-29] MEDS ORDERED: LEVOFLOXACIN/PMX 500MG/100ML 100 ML IV ONE (23:00)
[2020-09-29] MEDS ORDERED: SODIUM CHLORIDE FLUSH 10ML SYR IVF PRN (23:00)
[2020-09-29] MEDS ORDERED: LEVOFLOXACIN/PMX 750MG/150ML 0 ML ONE (23:18)
[2020-09-29] MEDS ORDERED: LEVOFLOXACIN/PMX 500MG/100ML 100 ML ONE (23:19)
[2020-09-29] MEDS ORDERED: HYDROmorphone 2 MG/ML, 1ML IVPush PRN (23:30)
--- NOTE | 2020-09-29 23:32 | NUR ---
REPORT GIVEN TO CLARE LINTON.
[2020-09-30 00:06] VITALS: BP 129/72
[2020-09-30] MEDS: LACTATED RINGERS 1,000 ML IV SCH ×3 (00:20→19:35)
[2020-09-30] MEDS: OXYcodone IR 5MG TABLET PO PRN ×5 (00:56→23:46)
[2020-09-30] MEDS: CARVEDILOL 6.25 MG TABLET PO SCH ×2 (04:53→17:51)
[2020-09-30] MEDS: ACETAMINOPHEN 325 MG TABLET PO PRN ×2 (06:07→15:36)
[2020-09-30 06:13] LABS: BASOPHILS % (AUTO) 1 % (0-1); EOSINOPHILS % (AUTO) 1 % (1-7); LYMPHOCYTES % (AUTO) 14 % (22-44); MEAN CORPUSCULAR HEMOGLOBIN 23.1 pg (27.0-34.8); MEAN CORPUSCULAR HGB CONC 32.2 g/dL (32.4-35.8); MEAN PLATELET VOLUME 6.1 fL (7.4-10.4); MONOCYTES % (AUTO) 11 % (2-9); NEUTROPHILS % (AUTO) 74 % (42-75); PLATELET COUNT 387 x10^3/uL (130-400); RED BLOOD COUNT 3.68 x10^6/uL (3.82-5.3); RED CELL DISTRIBUTION WIDTH 33.3 % (9.6-15.2)
[2020-09-30 06:30] LABS: ANION GAP 5 mmol/L (5-15); CALCIUM 8.9 mg/dL (8.5-10.1); CHLORIDE 107 mmol/L (98-107); CREATININE 2.04 mg/dL (0.55-1.02)
[2020-09-30 07:44] VITALS: BP 105/64
[2020-09-30 13:14] VITALS: BP 104/65
[2020-09-30] MEDS: ATORVASTATIN 40 MG TABLET PO SCH (19:34)
[2020-09-30] MEDS: DOCUSATE 100 MG CAPSULE PO PRN (19:55)
[2020-09-30 20:00] VITALS: BP 109/63
[2020-09-30] MEDS ORDERED: [UNRECOGNIZED DRUG - OTHER] IV SCH (23:00)
[2020-09-30] MEDS ORDERED: LEVOFLOXACIN IV SCH (23:00)
[2020-09-30] MEDS: LEVOFLOXACIN/PMX 250MG/50ML 50 ML IV SCH (23:04)
[2020-09-30] MEDS: CALCIUM CARBONATE 500 MG TAB.CHEW PO PRN (23:19)
[2020-10-01 05:27] VITALS: BP 113/67
[2020-10-01] MEDS: OXYcodone IR 5MG TABLET PO PRN ×4 (05:30→21:04)
[2020-10-01] MEDS: CARVEDILOL 6.25 MG TABLET PO SCH ×2 (05:31→18:05)
[2020-10-01] MEDS: LACTATED RINGERS 1,000 ML IV SCH ×2 (06:22→17:33)
[2020-10-01 06:47] LABS: BASOPHILS % (AUTO) 1 % (0-1); EOSINOPHILS % (AUTO) 1 % (1-7); LYMPHOCYTES % (AUTO) 17 % (22-44); MEAN CORPUSCULAR HEMOGLOBIN 23.1 pg (27.0-34.8); MEAN CORPUSCULAR HGB CONC 32.5 g/dL (32.4-35.8); MEAN PLATELET VOLUME 8.3 fL (7.4-10.4); MONOCYTES % (AUTO) 10 % (2-9); NEUTROPHILS % (AUTO) 71 % (42-75); PLATELET COUNT 335 x10^3/uL (130-400); RED BLOOD COUNT 3.37 x10^6/uL (3.82-5.3); RED CELL DISTRIBUTION WIDTH 32.8 % (9.6-15.2)
[2020-10-01 06:56] LABS: ALBUMIN 2.3 g/dL (3.4-5.0); ANION GAP 7 mmol/L (5-15); CALCIUM 9.3 mg/dL (8.5-10.1); CHLORIDE 107 mmol/L (98-107)
[2020-10-01 06:57] LABS: CREATININE 2.61 mg/dL (0.55-1.02)
[2020-10-01 06:58] LABS: INTERNATIONAL NORMALIZED RATIO 1.09 (0.93-1.1); PROTHROMBIN TIME 11.6 Seconds (9.6-11.5)
[2020-10-01] MEDS: ACETAMINOPHEN 325 MG TABLET PO PRN (09:04)
[2020-10-01 09:12] VITALS: BP 119/72
[2020-10-01 13:33] VITALS: BP 124/66
[2020-10-01] MEDS ORDERED: MIDAZOLAM 1 MG/ML, 5ML ONE (13:53)
[2020-10-01] MEDS ORDERED: FENTANYL PF 100 MCG/2ML ONE ×2 (13:54)
[2020-10-01] MEDS ORDERED: FLUMAZENIL 0.1 MG/1 ML, 5ML ONE (13:54)
[2020-10-01] MEDS ORDERED: NALOXONE 1 MG/ML, 2ML ONE (13:54)
[2020-10-01] MEDS ORDERED: LIDOCAINE 1%, 20ML ONE (14:05)
[2020-10-01 18:47] VITALS: BP 115/69
[2020-10-01] MEDS: ATORVASTATIN 40 MG TABLET PO SCH (20:58)
[2020-10-01] MEDS: DOCUSATE 100 MG CAPSULE PO PRN (21:08)
[2020-10-01] MEDS: LEVOFLOXACIN/PMX 250MG/50ML 50 ML IV SCH (22:51)
[2020-10-02 00:51] VITALS: BP 93/49
[2020-10-02] MEDS: CALCIUM CARBONATE 500 MG TAB.CHEW PO PRN (01:52)
[2020-10-02] MEDS: OXYcodone IR 5MG TABLET PO PRN ×2 (03:39→15:54)
[2020-10-02] MEDS: CARVEDILOL 6.25 MG TABLET PO SCH ×2 (06:09→17:20)
[2020-10-02] MEDS: LACTATED RINGERS 1,000 ML IV SCH ×2 (06:13→15:54)
[2020-10-02 06:30] VITALS: BP 112/67
[2020-10-02 06:36] LABS: BASOPHILS % (AUTO) 1 % (0-1); EOSINOPHILS % (AUTO) 0 % (1-7); LYMPHOCYTES % (AUTO) 13 % (22-44); MEAN CORPUSCULAR HEMOGLOBIN 23.2 pg (27.0-34.8); MEAN CORPUSCULAR HGB CONC 32.3 g/dL (32.4-35.8); MEAN PLATELET VOLUME 6.1 fL (7.4-10.4); MONOCYTES % (AUTO) 8 % (2-9); NEUTROPHILS % (AUTO) 79 % (42-75); PLATELET COUNT 304 x10^3/uL (130-400); RED BLOOD COUNT 3.29 x10^6/uL (3.82-5.3); RED CELL DISTRIBUTION WIDTH 32.3 % (9.6-15.2)
[2020-10-02 06:45] LABS: ALBUMIN 2.2 g/dL (3.4-5.0); ANION GAP 4 mmol/L (5-15); CALCIUM 9.1 mg/dL (8.5-10.1); CHLORIDE 107 mmol/L (98-107)
[2020-10-02 06:46] LABS: CREATININE 2.39 mg/dL (0.55-1.02)
[2020-10-02] MEDS: ACETAMINOPHEN 325 MG TABLET PO PRN ×2 (08:39→21:16)
[2020-10-02 13:49] VITALS: BP 118/74
[2020-10-02] MEDS ORDERED: HEPARIN 5,000 UNITS/ML, 1ML ONE (17:39)
[2020-10-02] MEDS: HEPARIN 5,000 UNITS/ML, 1ML SQ SCH (17:41)
[2020-10-02 18:32] VITALS: BP 131/70
[2020-10-02] MEDS: ATORVASTATIN 40 MG TABLET PO SCH (21:17)
[2020-10-02] MEDS: DOCUSATE 100 MG CAPSULE PO PRN (21:17)
[2020-10-02] MEDS: LEVOFLOXACIN/PMX 250MG/50ML 50 ML IV SCH (23:15)
[2020-10-03] MEDS ORDERED: ONDANSETRON 2MG/ML, 2ML IVPush ONE
[2020-10-03 00:13] VITALS: BP 132/68
[2020-10-03] MEDS: LACTATED RINGERS 1,000 ML IV SCH ×2 (02:36→12:10)
[2020-10-03] MEDS: CARVEDILOL 6.25 MG TABLET PO SCH (05:56)
[2020-10-03] MEDS: HEPARIN 5,000 UNITS/ML, 1ML SQ SCH (05:56)
[2020-10-03 06:05] LABS: MEAN CORPUSCULAR HEMOGLOBIN 23.1 pg (27.0-34.8); MEAN CORPUSCULAR HGB CONC 32.4 g/dL (32.4-35.8); MEAN PLATELET VOLUME 8.3 fL (7.4-10.4); PLATELET COUNT 298 x10^3/uL (130-400); RED BLOOD COUNT 3.28 x10^6/uL (3.82-5.3); RED CELL DISTRIBUTION WIDTH 31.9 % (9.6-15.2)
[2020-10-03 06:17] VITALS: BP 134/77
[2020-10-03 06:33] LABS: EOS#(MANUAL) 0.07 x10^3/uL (0.0-0.4); EOS% (MANUAL) 1 % (1-7); LYMPH#(MANUAL) 1.46 x10^3/uL (1-3.4); LYMPHS% (MANUAL) 20 % (22-44); MONOS#(MANUAL) 0.29 x10^3/uL (0.3-2.7); MONOS% (MANUAL) 4 % (2-9); SEG#(MANUAL) 5.48 x10^3/uL (1.8-6.8); SEGS% (MANUAL) 75 % (42-75)
[2020-10-03 06:34] LABS: ANISOCYTOSIS 2+; HYPOCHROMIA 1+; OVALOCYTES 1+
[2020-10-03 06:35] LABS: <PLATELET ESTIMATE> ADEQUATE; <PLT MORPHOLOGY> NORMAL PLT MORPH; MICROCYTOSIS 1+
[2020-10-03 06:41] LABS: ALBUMIN 1.9 g/dL (3.4-5.0); ANION GAP 3 mmol/L (5-15); CALCIUM 9.5 mg/dL (8.5-10.1); CHLORIDE 108 mmol/L (98-107)
[2020-10-03 06:42] LABS: CREATININE 1.66 mg/dL (0.55-1.02)
[2020-10-03 07:54] VITALS: BP 125/74
[2020-10-03] MEDS ORDERED: APIX5TAB PO (11:14)
[2020-10-03 13:25] VITALS: BP 131/78
== END 2020-10-03 15:01 | disposition home or self-care (01) | DRG 699 ==
LOC: ED 20:33 → EDIP 22:51 → 3N 23:56
PROVIDERS: ADMIT Student in an Organized Health Care Education/Training Program; ATTEND Internal Medicine
PROC: 0T9030Z Drainage of Right Kidney with Drainage Device, Percutaneous Approach (ICD-10-PCS; principal; 2020-10-01)
DX: T83.092A Other mechanical complication of nephrostomy catheter, initial encounter (principal); N13.6 Pyonephrosis; I48.20 Chronic atrial fibrillation, unspecified; N17.9 Acute kidney failure, unspecified; Y73.2 Prosthetic and other implants, materials and accessory gastroenterology and urology devices associated with adverse incidents; F17.210 Nicotine dependence, cigarettes, uncomplicated; I11.0 Hypertensive heart disease with heart failure; I50.9 Heart failure, unspecified; M54.9 Dorsalgia, unspecified; R31.9 Hematuria, unspecified; I25.2 Old myocardial infarction; Z79.01 Long term (current) use of anticoagulants; Z93.6 Other artificial openings of urinary tract status; Z90.49 Acquired absence of other specified parts of digestive tract
CPT/HCPCS: 36415; 50432; 96374; 96375; 99285; J3490; 74176; 80048; 80053; 80069; 81001; 83605; 85025; 85610; 85730; 87040; 87086; 99156; 99157; G0378; J1170; J1644; J1956; J2250; J2405; J3010; C1729; J2310; J7120

== ENCOUNTER 2020-10-06 11:34 | Emergency (ER) | payer MEDICAID ==
[~2020-10-06] VITALS: Ht 160 cm; Wt 80.5 kg
[2020-10-06] MEDS ORDERED: FENTANYL PF 100 MCG/2ML ONE (13:36)
[2020-10-06] MEDS ORDERED: NALOXONE 1 MG/ML, 2ML ONE (13:36)
--- NOTE | 2020-10-06 13:38 | NUR ---
PER IR, PT NEEDS IV & CONSENT SIGNED FOR NEW TUBE PLACEMENT. LAST MEAL WAS A PROTEIN SHAKE AT 0900.
--- NOTE | 2020-10-06 13:45 | NUR ---
WHEN TO PUT IV IN PT, PT & GURNEY NOT IN ROOM.
--- NOTE | 2020-10-06 14:10 | NUR ---
REPORT FROM ROSEANNE IN IR. PT HAS NEW 12F TUBE PLACED C CDI IN TACT. WILL CTM.
--- NOTE | 2020-10-06 14:19 | NUR ---
PT BACK FROM IR, PHLEB AT BS.
--- NOTE | 2020-10-06 14:34 | NUR ---
PT RESTING ON CART IN NAD. VSS. DENIES ANY NEEDS EXCEPT TO DRINK A SPRITE. FAMILY AT BS. WILL CTM.
[2020-10-06 14:41] LABS: ALBUMIN 2.5 g/dL (3.4-5.0); ANION GAP 6 mmol/L (5-15); CALCIUM 8.7 mg/dL (8.5-10.1); CHLORIDE 105 mmol/L (98-107); CREATININE 1.18 mg/dL (0.55-1.02)
--- NOTE | 2020-10-06 14:50 | NUR ---
REPORT RECEIVED FROM LISA SPARKS
[2020-10-06 15:04] LABS: MEAN CORPUSCULAR HGB CONC 32.1 g/dL (32.4-35.8); MEAN PLATELET VOLUME 6.5 fL (7.4-10.4); PLATELET COUNT 397 x10^3/uL (130-400); RED BLOOD COUNT 3.71 x10^6/uL (3.82-5.3); RED CELL DISTRIBUTION WIDTH 31.3 % (9.6-15.2)
[2020-10-06 15:17] VITALS: BP 146/83
--- NOTE | 2020-10-06 15:20 | NUR ---
PT RESTING IN BED, RESPS EVEN AND UNLABORED, VSS, NADN. AWAITING LAB RESULTS AND DISPO
[2020-10-06 15:28] LABS: ANISOCYTOSIS 2+; BASOS#(MANUAL) 0.19 x10^3/uL (0-0.1); BASOS% (MANUAL) 2 % (0-1); EOS#(MANUAL) 0.19 x10^3/uL (0.0-0.4); EOS% (MANUAL) 2 % (1-7); HYPOCHROMIA 1+; LYMPH#(MANUAL) 1.14 x10^3/uL (1-3.4); LYMPHS% (MANUAL) 12 % (22-44); MICROCYTOSIS 1+; MONOS#(MANUAL) 0.57 x10^3/uL (0.3-2.7); MONOS% (MANUAL) 6 % (2-9); SEG#(MANUAL) 7.41 x10^3/uL (1.8-6.8); SEGS% (MANUAL) 78 % (42-75)
[2020-10-06 15:29] LABS: <PLATELET ESTIMATE> ADEQUATE; <PLT MORPHOLOGY> NORMAL PLT MORPH; OVALOCYTES 1+
--- NOTE | 2020-10-06 15:36 | NUR ---
bekah De Jesus at bedside to discuss poc
--- NOTE | 2020-10-06 16:02 | NUR ---
pt educated on dc instructions and return criteria, verbalized undertsanding. PIV dc'd with tip intact, no s/sx. pt taken to dc via wheelchair accompanied by , no complaints at time of dc.
== END 2020-10-06 16:18 | disposition home or self-care (01) ==
LOC: ED 11:51
DX: N99.522 Malfunction of incontinent external stoma of urinary tract (principal); I11.0 Hypertensive heart disease with heart failure; I50.9 Heart failure, unspecified; I25.2 Old myocardial infarction; Z90.49 Acquired absence of other specified parts of digestive tract; Z87.891 Personal history of nicotine dependence; Z85.51 Personal history of malignant neoplasm of bladder
CPT/HCPCS: 36415; 50435; 80048; 82040; 85025; 99284; C1729; C1769; J3010; J2310

== ENCOUNTER 2020-10-12 17:34 | Emergency (ER) | payer MEDICAID ==
[~2020-10-12] VITALS: Ht 160 cm; Wt 81.8 kg
--- NOTE | 2020-10-12 18:21 | NUR ---
BILAT NEPH TUBES. LEFT SIDE DESCIRBES "NORMAL BLOODY OUTPUT, AND RT SIDE HAS NOT BEEN HAVING OUTPUT MUCH AND ITS NORMAL CLEAR BUT IS HAVING SOME BLOOD IN THERE WHICH HAPPENS WHEN I GET UTI'S. I HAVE BLOOD FROM MY VAGINA RIGHT NOW, I DON'T PEE NORMALLY ANYMORE". HAS BEEN SEEN FOR SAME, DESCRIBES SYMPTOMS SAME. 200 MLS OUTPUT FROM LEFT NEPHROSTOMY, 0 MLS FROM RIGHT. HAS NOT STARTED CHEMO THERAPY YET.
--- NOTE | 2020-10-12 18:26 | NUR ---
UA COLLECTED FROM LEFT NEPHROSTOMY AND SENT TO LAB. URINE DARK RED. AT BEDSIDE.
[2020-10-12 18:44] LABS: MICROSCOPIC INDICATED
[2020-10-12 18:50] LABS: ALANINE AMINOTRANSFERASE 14 U/L (12-78); ALBUMIN 2.5 g/dL (3.4-5.0); ANION GAP 5 mmol/L (5-15); CALCIUM 9.4 mg/dL (8.5-10.1); CHLORIDE 105 mmol/L (98-107); CREATININE 1.11 mg/dL (0.55-1.02)
[2020-10-12 18:52] LABS: ALKALINE PHOSPHATASE 83 U/L (45-117); BILIRUBIN,TOTAL 0.2 mg/dL (0.2-1.0)
[2020-10-12 18:53] LABS: BASOPHILS % (AUTO) 1 % (0-1); EOSINOPHILS % (AUTO) 3 % (1-7); LYMPHOCYTES % (AUTO) 17 % (22-44); MEAN CORPUSCULAR HEMOGLOBIN 23.5 pg (27.0-34.8); MEAN PLATELET VOLUME 6.2 fL (7.4-10.4); MONOCYTES % (AUTO) 8 % (2-9); NEUTROPHILS % (AUTO) 72 % (42-75); PLATELET COUNT 491 x10^3/uL (130-400); RED BLOOD COUNT 3.23 x10^6/uL (3.82-5.3); RED CELL DISTRIBUTION WIDTH 30.1 % (9.6-15.2)
[2020-10-12 19:25] LABS: ANISOCYTOSIS 2+; HYPOCHROMIA 1+; MICROCYTOSIS 1+; OVALOCYTES 1+
[2020-10-12 19:27] LABS: <PLATELET ESTIMATE> INCREASED; <PLT MORPHOLOGY> NORMAL PLT MORPH
[2020-10-12] MEDS ORDERED: HYDROmorphone 2 MG/ML, 1ML ONE (19:28)
[2020-10-12] MEDS ORDERED: SODIUM CHLORIDE 0.9% 1,000ML IVBOLUS ONE (19:30)
[2020-10-12] MEDS ORDERED: HYDROmorphone 1 MG/ML, 1ML INJ IVPush PRN (19:30)
[2020-10-12] MEDS ORDERED: SODIUM CHLORIDE FLUSH 10ML SYR IVF ONE (19:30)
--- NOTE | 2020-10-12 20:35 | NUR ---
pt reports pain is better, now 2/10.
[2020-10-12 23:01] VITALS: BP 133/74
== END 2020-10-12 23:03 | disposition home or self-care (01) ==
LOC: ED 21:08
DX: R31.0 Gross hematuria (principal); R10.2 Pelvic and perineal pain; R30.0 Dysuria; I11.0 Hypertensive heart disease with heart failure; I50.9 Heart failure, unspecified; I25.2 Old myocardial infarction; Z85.51 Personal history of malignant neoplasm of bladder; Z90.49 Acquired absence of other specified parts of digestive tract
CPT/HCPCS: 36415; 80053; 81001; 85025; 87086; 96374; 99285; J1170; J7030; 87186

== ENCOUNTER 2020-11-27 07:34 | Day surgery (SDC) | payer MEDICAID ==
[~2020-11-27] VITALS: Ht 160 cm; Wt 76.1 kg
[2020-11-27 07:55] VITALS: BP 153/89
[2020-11-27] MEDS ORDERED: CEFAZOLIN PMX 1GM/50ML 50 ML IV ONE (08:00)
[2020-11-27] MEDS ORDERED: CEFAZOLIN PMX 1GM/50ML 50 ML ONE (08:04)
[2020-11-27] MEDS ORDERED: HYDR-3237 PO (08:16)
[2020-11-27] MEDS ORDERED: PROC10TA2 PO (08:16)
[2020-11-27] MEDS ORDERED: SODIUM CHLORIDE 0.9% 1,000 ML IV SCH (08:30)
[2020-11-27] MEDS ORDERED: FENTANYL PF 100 MCG/2ML ONE (09:24)
[2020-11-27] MEDS ORDERED: FLUMAZENIL 0.1 MG/1 ML, 5ML ONE (09:25)
[2020-11-27] MEDS ORDERED: ONDANSETRON 2MG/ML, 2ML ONE (09:25)
[2020-11-27] MEDS ORDERED: MIDAZOLAM 1 MG/ML, 5ML ONE (09:25)
[2020-11-27] MEDS ORDERED: NALOXONE 1 MG/ML, 2ML ONE (09:25)
[2020-11-27] MEDS ORDERED: LIDOCAINE 1%, 10ML ONE (09:48)
[2020-11-27] MEDS ORDERED: LIDOCAINE 1%, 20ML ONE (09:49)
== END 2020-11-27 12:45 | disposition home or self-care (01) ==
LOC: OUT 07:34
PROVIDERS: ATTEND Pathology Hematology
DX: C67.0 Malignant neoplasm of trigone of bladder (principal); I12.9 Hypertensive chronic kidney disease with stage 1 through stage 4 chronic kidney disease, or unspecified chronic kidney disease; N18.9 Chronic kidney disease, unspecified; D50.9 Iron deficiency anemia, unspecified; Z79.891 Long term (current) use of opiate analgesic; Z79.899 Other long term (current) drug therapy; Z87.891 Personal history of nicotine dependence
CPT/HCPCS: 36561; 76937; 77001; 93971; 99156; 99157; C1788; C1894; J0690; J1642; J2250; J2405; J3010; J7030; J2310